=== PATIENT | female | born 2000 | race Caucasian/White ===

== ENCOUNTER 2022-01-04 10:09 | Emergency (ER) | payer OTHER ==
[2022-01-04 11:02] LABS: BASOPHIL 0.8 % (0-2); EOSINOPHIL 1.5 % (0-5); HCT 39.6 % (37.0-47.0); HGB 13.1 g/dl (12.5-16.0); LYMPHOCYTE 30.1 % (15-48); MCH 29.9 pg (25.0-31.0); MCHC 33.1 g/dL (32.0-36.0); MCV 90.4 fL (78.0-100.0); MONOCYTE 5.3 % (0-12); MPV 10.7 fL (6.0-9.5); NRBC 0; PLT 282 K/uL (150-400); RBC 4.38 M/uL (4.20-5.40); WBC 7.2 K/uL (4.0-10.5)
[2022-01-04 11:42] LABS: CREATININE 0.76 mg/dL (0.51-0.95); POTASSIUM 3.8 mmol/L (3.5-5.1)
[2022-01-04 11:43] LABS: ALBUMIN 3.4 g/dL (3.4-5.0); BILIRUBIN - TOTAL 0.3 mg/dL (0.2-1.0); GLOBULIN (CALCULATION) 3.6 g/dL
[2022-01-04] MEDS ORDERED: OMEPRAZOLE40 MG PO (11:51)
== END 2022-01-04 12:01 | disposition home or self-care (01) ==
LOC: FER 10:09
PROVIDERS: Emergency Medicine
DX: K29.00 Acute gastritis without bleeding (principal); Z28.310 Unvaccinated for COVID-19; Z88.0 Allergy status to penicillin
CPT/HCPCS: 36415; 80053; 83690; 85025; 99284